=== PATIENT | male | born 1985 | race Two or more races ===

== ENCOUNTER 2017-09-25 16:40 | Emergency (ER) | payer SELFPAY ==
[2017-09-25 16:52] VITALS: BP 143/80
[2017-09-25] MEDS ORDERED: TETRACAINE HCL 0.5% OPH SOLN 2 ML OD ONE (18:25)
[2017-09-25] MEDS ORDERED: POLYMYXIN B SULFATE/TMP OPH SOLN (10 ML/ER DISP) OS PRN (19:18)
[2017-09-25] MEDS ORDERED: CLINDAMYCIN HCL 150 MG CAPSULE PO ONE (19:20)
--- NOTE | 2017-09-25 19:29 | ER Document Report ---
ED Eye Complaint - General Chief Complaint: Eye Problem Stated Complaint: RIGHT EYE INJURY Time Seen by Provider: 09/25/17 18:13 Mode of Arrival: Ambulatory Information source: Patient Notes: Patient is a 32-year-old otherwise healthy male who presents with chief complaint of redness and itching to his right eye. Patient reports that he woke up this morning with redness, tenderness and itchiness to his eye as well as yellow colored drainage. Patient denies any history of same. TRAVEL OUTSIDE OF THE [place] IN LAST 30 DAYS: No - Related Data Allergies/Adverse Reactions: No Known Allergies Allergy (Unverified 09/25/17 16:44) Past Medical History - General Information source: Patient - Social History Smoking Status: Never Smoker Frequency of alcohol use: None Drug Abuse: None Lives with: Family Family History: Reviewed & Not Pertinent Patient has suicidal ideation: No Patient has homicidal ideation: No - Medical History Medical History: Negative Renal/ Medical History: Denies: Hx Peritoneal Dialysis Surgical Hx: Negative - Immunizations Immunizations up to date: Yes Review of Systems - Review of Systems Constitutional: No symptoms reported EENT: See HPI Cardiovascular: No symptoms reported Respiratory: No symptoms reported Gastrointestinal: No symptoms reported Genitourinary: No symptoms reported Male Genitourinary: No symptoms reported Musculoskeletal: No symptoms reported Skin: No symptoms reported Hematologic/Lymphatic: No symptoms reported Neurological/Psychological: No symptoms reported Physical Exam - Vital signs Vitals: Temp Pulse Resp BP Pulse Ox 97.9 F 74 16 143/80 H 100 09/25/17 16:51 09/25/17 16:51 09/25/17 16:51 09/25/17 16:51 09/25/17 16:51 - Notes Notes: PHYSICAL EXAMINATION: GENERAL: Well-appearing, well-nourished and in no acute distress. HEAD: Atraumatic, normocephalic. EYES: Pupils equal round and reactive to light, extraocular movements intact, sclera anicteric, conjunctiva normal to left eye. Conjunctiva erythematous to right eye with yellow drainage noted. Swelling noted under right eye. ENT: Nares patent, oropharynx clear without exudates. Moist mucous membranes. NECK: Normal range of motion, supple without lymphadenopathy LUNGS: Breath sounds clear to auscultation bilaterally and equal. No wheezes rales or rhonchi. HEART: Regular rate and rhythm without murmurs ABDOMEN: Soft, nontender, nondistended abdomen. No guarding, no rebound. No masses appreciated. Musculoskeletal: Normal range of motion, no pitting or edema. No cyanosis. NEUROLOGICAL: Cranial nerves grossly intact. Normal speech, normal gait. Normal sensory, motor exams PSYCH: Normal mood, normal affect. SKIN: Warm, Dry, normal turgor, no rashes or lesions noted. Course - Re-evaluation Re-evalutation: 32-year-old otherwise healthy male presenting with complaint of redness and drainage from the right eye that began this morning. Right eye was stained utilizing flourescein and examined under the [place] lamp. There is no flourescein uptake, no corneal abrasion noted. Patient will be discharged home on an ophthalmic eyedrop as well as an oral eyedrop due to the swelling under the eye. Patient understands the need for him to follow-up with either his primary care provider or an eye doctor in the next 2-3 days if these symptoms do not improve. Return to the emergency department sooner if his symptoms worsen. - Vital Signs Vital signs: Temp Pulse Resp BP Pulse Ox 97.9 F 74 16 143/80 H 100 09/25/17 16:51 09/25/17 16:51 09/25/17 16:51 09/25/17 16:51 09/25/17 16:51 Discharge - Discharge Clinical Impression: Conjunctivitis Qualifiers: Conjunctivitis type: acute Acute conjunctivitis type: unspecified Laterality: right Qualified Code(s): H10.31 - Unspecified acute conjunctivitis, right eye Condition: Stable Disposition: HOME, SELF-CARE Additional Instructions: Conjunctivitis You have an infection in your eye, commonly known as "pink eye." Conjunctivitis causes redness, mild discomfort, itching, and mattering on the eyelids. It is very contagious, so you must be careful to wash your hands after touching your face so you don't pass the infection on to others. Conjunctivitis is caused by both viruses and bacteria. It usually responds quickly to treatment with antibiotic drops. These should be placed in the eye as prescribed (usually every three to four hours while you're awake). If you wear contact lenses, don't put them in your eyes until the infection is cleared and you are no longer using the drops (unless your doctor advises you otherwise). Should you develop increasing eye pain, severe swelling, decreased vision, or fail to improve as expected, please return for re-examination. We are treating you with antibiotics in the form of eyedrops for the conjunctivitis. You also have some swelling to the bottom of your pain, I will be treating with oral antibiotics for this. Please follow-up with your primary care physician. Prescriptions: Amoxicillin 500 mg PO BID #14 capsule Clindamycin HCl 300 mg PO QID #28 capsule
== END 2017-09-25 19:30 | disposition home or self-care (01) ==
LOC: ER 16:40
DX: H10.31 Unspecified acute conjunctivitis, right eye (principal)
CPT/HCPCS: 99282; J3490